=== PATIENT | female | born 1995 | race Asian ===

== ENCOUNTER 2020-06-03 06:34 | Emergency (ER) | payer OTHER, SELFPAY ==
--- NOTE | 2020-06-03 06:40 | DI.RAD.S_ITS ---
PROCEDURE: XR CHEST 1V INDICATIONS: Shortness of breath TECHNIQUE: One view of the chest was acquired. COMPARISON: None. FINDINGS: Surgical changes and devices: None. Lungs and pleura: Lungs are mildly abnormal with an interstitial prominence pattern slightly greater on the right than the left. This is in the setting of reduced inspiratory volume, however.. No pleural effusions or pneumothorax. Mediastinum: Mediastinal contours appear normal. Heart size is normal. Bones and chest wall: No suspicious bony lesions. Overlying soft tissues appear unremarkable. IMPRESSION: Reduced inspiratory volume, crowding of the bronchovascular markings. A definite alternative etiology to the mild interstitial prominence discussed above is not established by this study. It is conceivable that a small degree of alveolar infiltration of any cause could be superimposed. Upright deep inspiratory PA and lateral chest plain films in the radiology department likely would be beneficial to obtain to confirm presence or absence of underlying airspace disease. Dictated by: Jarret Cyr M.D. on 06/03/2020 at 8:19 Approved by: Jarret Cyr M.D. on 06/03/2020 at 8:21
[2020-06-03 06:41] VITALS: BP 134/83; PULSE 89; RESP 17; TEMP 36.9; O2SAT 98
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
== END 2020-06-03 07:03 | disposition home or self-care (01) ==
LOC: ED 07:06
PROVIDERS: Emergency Provider Emergency Medicine
DX: R06.02 Shortness of breath (principal)
CPT/HCPCS: 71045; 99283